=== PATIENT | female | born 1945 | race Caucasian/White ===

== ENCOUNTER 2020-02-15 13:59 | Emergency (ER) | payer MEDICARE, BC ==
[2020-02-15 15:00] LABS: CHLORIDE,CL 103 mmol/L (98-107); SODIUM,NA 140 mmol/L (136-145)
--- NOTE | 2020-02-15 15:22 | EDM.PDOC ---
ED HPI GENERAL MEDICAL PROBLEM - General Chief Complaint: General Stated Complaint: blood in stool Time Seen by Provider: 02/15/20 14:13 Source of Information: Reports: Patient History Limitations: Reports: No Limitations - History of Present Illness INITIAL COMMENTS - FREE TEXT/NARRATIVE: Patient concerned that she had two episodes of bright red color mixed with stool when she had bowel movements earlier this morning. No BMs since then. No new abdominal pain. Feels well otherwise. Had recent surgeries earlier this month after experiencing ruptured appendix. Has been recovering well overall. Denies fever/other acute changes. Hx external hemorrhoids years ago but no recent issues. No lumps/pain around rectum. Has not ever had a colonoscopy. - Related Data Allergies Allergy/AdvReac Type Severity Reaction Status Date / Time codeine Allergy Drowsiness Verified 02/15/20 14:13 Home Meds: Home Meds Levothyroxine Sodium [Synthroid] 150 mcg PO DAILY 02/15/20 [History] Omeprazole 20 mg PO DAILY 02/15/20 [History] Sertraline [Zoloft] 100 mg PO BEDTIME 02/15/20 [History] Past Medical History Gastrointestinal History: Reports: GERD Psychiatric History: Reports: Depression Endocrine/Metabolic History: Reports: Hypothyroidism, Obesity/BMI 30+ - Past Surgical History GI Surgical History: Reports: Appendectomy Social & Family History - Tobacco Use Tobacco Use Status *Q: Never Tobacco User Second Hand Smoke Exposure: No - Caffeine Use Caffeine Use: Reports: Coffee - Recreational Drug Use Recreational Drug Use: No ED ROS GENERAL - Review of Systems Review Of Systems: See Below Constitutional: Reports: No Symptoms HEENT: Reports: No Symptoms, Glasses Cardiovascular: Reports: No Symptoms GI/Abdominal: Reports: Bloody Stool. Denies: Abdominal Pain, Black Stool, Constipation, Difficulty Swallowing, Mucous in Stool, Nausea, Stool Incontinence, Vomiting : Reports: No Symptoms Musculoskeletal: Reports: Other (no acute changes from baseline) Skin: Reports: No Symptoms Neurological: Reports: No Symptoms Psychiatric: Reports: No Symptoms Hematologic/Lymphatic: Reports: No Symptoms ED EXAM, GENERAL - Physical Exam Exam: See Below Exam Limited By: No Limitations General Appearance: Alert, WD/WN, No Apparent Distress Eye Exam: Bilateral Eye: EOMI, PERRL Ears: Hearing Grossly Normal Throat/Mouth: Normal Voice, No Airway Compromise Head: Atraumatic, Normocephalic Neck: Supple Respiratory/Chest: No Respiratory Distress GI/Abdominal: Soft, No Distention, Other (mild tenderness over incision site from recent surgery) (Female) Exam: Deferred Rectal (Female) Exam: Deferred Neurological: Alert, Oriented, Normal Cognition, Normal Gait Psychiatric: Normal Affect, Normal Mood Skin Exam: Warm, Normal Color Course - Vital Signs Last Recorded V/S: Last Vital Signs Temp 36.5 C 02/15/20 14:08 Pulse 96 02/15/20 14:08 Resp 18 02/15/20 14:08 BP 116/63 02/15/20 14:08 Pulse Ox 97 02/15/20 14:08 - Orders/Labs/Meds Labs: Laboratory Tests 02/15/20 02/15/20 Range/Units 14:40 14:40 WBC 8.7 (4.0-10.2) K/uL RBC 3.73 L (3.77-5.09) M/uL Hgb 11.3 L D (11.7-15.5) g/dL Hct 35.2 (34.0-46.0) % MCV 94.4 (84.0-98.0) fL MCH 30.3 (28.2-33.3) pg MCHC 32.1 (31.7-36.0) g/dL RDW 13.7 (11.2-14.1) % Plt Count 403 H (150-350) K/uL Neut % (Auto) 70.0 (45.0-80.0) % Lymph % (Auto) 15.3 (10.0-50.0) % [place] % (Auto) 10.9 (2.0-14.0) % Eos % (Auto) 3.5 (0.0-5.0) % Baso % (Auto) 0.3 (0.0-2.0) % Neut # (Auto) 6.11 (1.40-7.00) K/uL Lymph # (Auto) 1.34 (0.50-3.50) K/uL [place] # (Auto) 0.95 (0.00-1.00) K/uL Eos # (Auto) 0.31 (0.00-0.50) K/uL Baso # (Auto) 0.03 (0.00-0.20) K/uL Sodium 140 (136-145) mmol/L Potassium 3.5 (3.5-5.1) mmol/L Chloride 103 (98-107) mmol/L Carbon Dioxide 28.4 (21.0-32.0) mmol/L BUN 15 (7-18) mg/dL Creatinine 0.74 (0.51-1.17) mg/dL Est Cr Clr Drug Dosing 55.17 mL/min Estimated GFR (MDRD) > 60 mL/min Glucose 117 H (74-106) mg/dL Calcium 9.2 (8.5-10.1) mg/dL Total Bilirubin 0.3 (0.2-1.0) mg/dL AST 36 (15-37) U/L ALT 47 (12-78) U/L Alkaline Phosphatase 105 (46-116) IU/L Total Protein 6.4 (6.4-8.2) g/dL Albumin 2.8 L (3.4-5.0) g/dL - Re-Assessments/Exams Free Text/Narrative Re-Assessment/Exam: 02/15/20 15:36 Patient reports no external hemorrhoids. Best workup approach will include colonoscopy to look for internal hemorrhoids/polyps. CBC performed and Hgb stable at 11.3 Given that she has had no other BMs/issues with blood in stools since this morning, it would be ok for her call her primary clinic in [place] in the morning to 1) arrange recheck of Hgb in 2-3 days and 2) arrange for colonoscopy. Uncertain if there are any contraindications for one this soon after her appendectomy. Surgery will need to be asked about this. Louise dueñas. If she develops worsening issues with blood in stools/frequent stools/increased abdominal pain she asked to return to the ER for re-evaluation. Patient agreeable with plan. Departure - Departure Time of Disposition: 15:16 Disposition: Home, Self-Care 01 Condition: Good Clinical Impression: BRBPR (bright red blood per rectum) - Discharge Information *PRESCRIPTION DRUG MONITORING PROGRAM REVIEWED*: Not Applicable *COPY OF PRESCRIPTION DRUG MONITORING REPORT IN PATIENT DEE DEE: Not Applicable Instructions: Lower Gastrointestinal Bleeding Referrals: PCP,None [Primary Care Provider] - Forms: ED Department Discharge Additional Instructions: Watch for additional episodes. If they become more severe/frequent then get rechecked in ER. Otherwise call your primary provider/clinic tomorrow and tell them what happened and that you were in ER. Have them compare your hemoglobin of 11.3 today to their level from last week, and arrange a recheck on or Sunday to make sure level is stable. They can also continue any additional workup needed to further evaluate you for bleeding. Recommend colonoscopy arranged. We usually have them performed here on . Sepsis Event Note (ED) - Evaluation Sepsis Screening Result: No Definite Risk - Focused Exam Vital Signs: Vital Signs Temp Pulse Resp BP Pulse Ox 02/15/20 14:08 36.5 C 96 18 116/63 97
== END 2020-02-15 15:50 | disposition home or self-care (01) ==
LOC: LL.ED 13:59
DX: K62.5 Hemorrhage of anus and rectum (principal); K21.9 Gastro-esophageal reflux disease without esophagitis; E03.9 Hypothyroidism, unspecified; E66.9 Obesity, unspecified; Z88.5 Allergy status to narcotic agent; Z79.899 Other long term (current) drug therapy; Z90.49 Acquired absence of other specified parts of digestive tract
CPT/HCPCS: 36415; 80053; 85025; 99283